=== PATIENT | female | born 1995 | race Caucasian/White ===

== ENCOUNTER 2017-09-03 20:16 | Emergency (ER) | payer OTHER ==
[2017-09-03 20:23] VITALS: BP 129/88
--- NOTE | 2017-09-03 21:16 | UC ---
Respiratory Complaint HPI - HPI Summary HPI Summary: 22 year old female presents with complains of right eye redness, cough, sore throat and loss of voice. - History of Current Complaint Chief Complaint: UCRespiratory Stated Complaint: COUGH,ST,EYE IRRITATION Time Seen by Provider: 09/03/17 21:14 Hx Obtained From: Patient Hx Last Menstrual Period: one month ago Onset/Duration: Sudden Onset Timing: Constant Severity Currently: Moderate Pain Scale Used: 0-10 Numeric - 4 - Allergies/Home Medications Allergies/Adverse Reactions: Allergies Allergy/AdvReac Type Severity Reaction Status Date / Time No Known Allergies Allergy Verified 09/03/17 20:23 Home Medications: Home Medications Acetaminophen TAB* [Tylenol TAB*] 2 tab PO ONCE 09/03/17 [History Confirmed ] Ibuprofen TAB* [Advil TAB*] 400 mg PO ONCE 09/03/17 [History Confirmed 09/03/17] PMH/Surg Hx/FS Hx/Imm Hx Previously Healthy: Yes - Surgical History Surgical History: None - Social History Alcohol Use: Occasionally Substance Use Type: None Smoking Status (MU): Never Smoked Tobacco Review of Systems Constitutional: Negative Skin: Negative Eyes: Eye Redness ENT: Sore Throat, Nasal Discharge, Sinus Congestion, Sinus Pain/Tenderness Respiratory: Negative Cardiovascular: Negative Gastrointestinal: Negative Genitourinary: Negative Motor: Negative Neurovascular: Negative Musculoskeletal: Negative Neurological: Negative Psychological: Negative All Other Systems Reviewed And Are Negative: Yes Physical Exam Triage Information Reviewed: Yes Appearance: Well-Appearing Vital Signs: Initial Vital Signs Temp 36.5 C 09/03/17 20:20 Pulse 93 09/03/17 20:20 Resp 18 09/03/17 20:20 BP 129/88 09/03/17 20:20 Pulse Ox 100 09/03/17 20:20 Vital Signs Reviewed: Yes Eyes: Positive: Conjunctiva Inflamed, Discharge ENT: Positive: Pharyngeal erythema, Nasal congestion, Nasal drainage Dental Exam: Normal Neck exam: Normal Neck: Positive: 1 Respiratory Exam: Normal Cardiovascular Exam: Normal Abdominal Exam: Normal Musculoskeletal Exam: Normal Neurological Exam: Normal Psychological Exam: Normal Skin Exam: Normal UC Diagnostic Evaluation - Laboratory O2 Sat by Pulse Oximetry: 100 Respiratory Course/Dx - Differential Dx/Diagnosis Provider Diagnoses: nasal congestion. sore throat. right conjunctivitis Discharge - Discharge Plan Condition: Stable Disposition: HOME Prescriptions: Amoxicillin/Clavulanate TAB* [Augmentin TAB 875*] 875 mg PO BID #20 tab LoraTADine TAB(NF) [Claritin 10 MG TAB(NF)] 10 mg PO DAILY #30 tab guaiFENesin/CODIEN 100MG-10MG* [Robitussin AC 100Mg-10Mg*] 5 ml PO Q6H PRN #120 ml MDD 20 ml PRN Reason: Cough Patient Education Materials: Laryngitis (ED), Conjunctivitis (ED) Referrals: No Primary Care Phys,NOPCP [Primary Care Provider] -
[2017-09-03] MEDS ORDERED: Amoxicillin/Clavulanate TAB* 875 MG PO ONE (21:17)
[2017-09-03] MEDS ORDERED: guaiFENesin LIQ* 100 MG/5 ML UDC PO ONE (21:18)
[2017-09-03] MEDS ORDERED: LoraTADine TAB(NF) 10 MG TAB (AUTOSUB to CETIRIZINE) PO ONE (21:18)
[2017-09-03] MEDS ORDERED: Polymyx/Trimethoprim OPTH* 10 ML BTL BOTH EYES ONE (21:20)
== END 2017-09-03 22:30 | disposition home or self-care (01) ==
LOC: UCEAST 20:16
DX: R09.81 Nasal congestion (principal); J02.9 Acute pharyngitis, unspecified; H10.31 Unspecified acute conjunctivitis, right eye
CPT/HCPCS: 87651; 99202; A9270-GY; G0463